=== PATIENT | male | born 1955 ===

== ENCOUNTER 2024-07-17 14:59 | Observation (INO) | payer OTHER ==
[~2024-07-17] VITALS: Ht 182.9 cm; Wt 75.0 kg
[2024-07-17] VITALS (8 sets, daily range): BP systolic 108–157; BP diastolic 60–94
[2024-07-17] MEDS ORDERED: LEVSOD75 PO (16:25)
[2024-07-17] MEDS ORDERED: Dose Adjust by Pharmacy XX STA (16:58)
[2024-07-17] MEDS ORDERED: Heparin Sodium,Porcine/0.5 NS 500 ML IV SCH (17:00)
[2024-07-17] MEDS ORDERED: Bisacodyl 10 MG Supp PR PRN (17:25)
[2024-07-17] MEDS ORDERED: Magnesium Hydroxide Conc 10 ML UDC PO PRN (17:25)
[2024-07-17] MEDS ORDERED: Ondansetron 4 MG TAB PO PRN (17:30)
--- NOTE | 2024-07-17 18:00 | NUR ---
SHIFT SUMMARY PATIENT AOX4 ABLE TO MAKE NEEDS KNOWN. HIS VITALS ARE STABLE AND DENIES SOB. HE DOES SAY HE HAS BURNING CHEST PAIN HE IS ON HEP GTT AND RECIEVED NITRO PASTE FROM OTHER HOSPITAL. HE IS VOIDING IN THE URINAL AND IS A STANDBY ASSIST. 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
[2024-07-17] MEDS ORDERED: Nitroglycerin 0.4 MG SUBL SL PRN (18:25)
[2024-07-17] MEDS ORDERED: Heparin Sodium 1000 Units/ML 10ML MDV ONE (18:49)
[2024-07-17] MEDS ORDERED: NiCARdipine HCL 1,000 MCG/5 ML SYR ONE (18:50)
[2024-07-17] MEDS ORDERED: NS 250 ML IV ONE (18:50)
[2024-07-17] MEDS ORDERED: NS 1,000 ML IV ONE ×2 (18:50→18:51)
[2024-07-17] MEDS ORDERED: FentaNYL Citrate 50 MCG/ML 2 ML Injection ONE ×2 (18:51→19:42)
[2024-07-17] MEDS ORDERED: Nitroglycerin 2 MG/20 ML BTL ONE (18:51)
[2024-07-17] MEDS ORDERED: Midazolam HCl 1MG / ML 2ML Vial ONE ×2 (18:51→19:38)
[2024-07-17] MEDS ORDERED: prasugrel HCL 10 MG TABLET PO ONE (19:30)
[2024-07-17] MEDS ORDERED: DiphenhydrAMINE HCl 50 MG/ML 1ML Vial ONE (19:43)
[2024-07-17] MEDS ORDERED: NS 1,000 ML IV SCH (20:05)
[2024-07-17] MEDS ORDERED: Mag Hydrox/AL Hydrox/Simeth 30 ML UDC PO PRN (20:05)
[2024-07-17] MEDS ORDERED: Doxazosin Mesylate 2 MG Tab PO SCH (21:00)
[2024-07-17] MEDS ORDERED: Famotidine 20 MG Tab PO SCH (21:00)
[2024-07-17] MEDS ORDERED: Docusate Sodium 100 MG Cap PO SCH (21:00)
[2024-07-17] MEDS ORDERED: Atorvastatin 40 MG Tab PO SCH (21:00)
[2024-07-17] MEDS ORDERED: Sennosides 8.6 MG Tab PO SCH (21:00)
[2024-07-17] MEDS ORDERED: Gabapentin 300 MG Cap PO SCH (21:00)
[2024-07-17] MEDS ORDERED: Acetaminophen 325 MG TABLET PO PRN (21:55)
--- NOTE | 2024-07-18 00:45 | NUR ---
SHIFT SUMMARY PT WENT TO [facility] PERSON. RIGHT RADIAL SITE RECOVERED. CHEST PAIN IS DECREASED, LESS RADIATING QUALITY BUT STILL SLIGHTLY PRESENT PER PT. VVS. EKG'S PLACED IN CHART.
[2024-07-18 01:00] VITALS: BP 121/81
[2024-07-18 02:00] VITALS: BP 130/67
[2024-07-18 03:00] VITALS: BP 117/75
[2024-07-18 04:00] VITALS: BP 125/76
[2024-07-18 04:23] LABS: BASOPHILS ABSOLUTE AUTO 0.08 K/mm3 (0.00-0.23); BASOPHILS PERCENT AUTO 1 % (0-2); EOSINOPHILS ABSOLUTE AUTO 0.22 K/mm3 (0.00-0.68); EOSINOPHILS PERCENT AUTO 3 % (0-6); Hemoglobin 13.3 g/dL (13.5-17.5); IMMATURE GRAN ABSOLUTE AUTO 0.02 K/mm3 (0.00-0.10); IMMATURE GRAN PERCENT AUTO 0 % (0-1); LYMPHOCYTES ABSOLUTE AUTO 3.07 K/mm3 (0.84-5.20); LYMPHOCYTES PERCENT AUTO 40 % (21-46); MONOCYTES ABSOLUTE AUTO 0.52 K/mm3 (0.16-1.47); MONOCYTES PERCENT AUTO 7 % (4-13); Mean Corpuscular HGB 30.8 pg (26.0-34.0); Mean Corpuscular Volume 88 fL (80-100); Mean Platelet Volume 12.2 fL (9.1-12.4); NEUTROPHILS ABSOLUTE AUTO 3.71 K/mm3 (1.96-9.15); NEUTROPHILS PERCENT AUTO 49 % (41-73); Platelet Count 128 K/mm3 (150-400); RDW Coefficient Variation 13.1 % (11.7-14.2); RDW Standard Deviation 42.7 fL (35.1-46.3); Red Blood Cell Count 4.32 M/mm3 (4.30-5.90); White Blood Cell Count 7.62 K/mm3 (4.00-11.30)
[2024-07-18 04:36] LABS: Anion Gap 10 mmol/L (3-11); Blood Urea Nitrogen 12 mg/dL (8-24); Bun/Creatinine Ratio 13.1 (12.0-20.0); CHOL/HDL RATIO 2.8; CO2, Blood 23 mmol/L (21-32); Calcium, Blood 8.3 mg/dL (8.5-10.1); Chloride, Blood 109 mmol/L (98-108); Cholesterol 139 mg/dL (50-200); Creatinine, Blood 0.92 mg/dL (0.60-1.20); Glomerular Filtration Rate 90 (60-); Glucose, Blood 94 mg/dL (70-99); HDL Cholesterol 50 mg/dL (>39); LDL/HDL RATIO 1.3; Low Density Lipoprotein Chol 63 mg/dL (0-110); Potassium, Blood 3.9 mmol/L (3.5-5.5); Sodium, Blood 138 mmol/L (136-145); Triglycerides 128 mg/dL (30-160); Very Low Density Lipoprot Chol 25 mg/dL (6-32)
[2024-07-18 07:30] VITALS: BP 135/82
[2024-07-18] MEDS ORDERED: ONDA4ODT MM (07:39)
[2024-07-18] MEDS ORDERED: prasugrel HCL 10 MG TABLET PO SCH (09:00)
[2024-07-18] MEDS ORDERED: Atorvastatin 40 MG Tab PO SCH (09:00)
[2024-07-18] MEDS ORDERED: Aspirin 81 MG TabEC PO SCH (09:00)
[2024-07-18 12:17] VITALS: BP 134/75
[2024-07-18] MEDS ORDERED: ATORVASTATIN CA80 M1 PO (15:41)
[2024-07-18] MEDS ORDERED: ASPI81CH PO (15:42)
[2024-07-18] MEDS ORDERED: DOXA4 PO (15:42)
[2024-07-18] MEDS ORDERED: EFFIENT10 MG PO (15:42)
== END 2024-07-18 17:20 | disposition home or self-care (01) ==
LOC: PCU 14:59
PROVIDERS: Hospitalist; ADMIT Internal Medicine
DX: I21.4 Non-ST elevation (NSTEMI) myocardial infarction (principal); T82.855A Stenosis of coronary artery stent, initial encounter; I25.10 Atherosclerotic heart disease of native coronary artery without angina pectoris; I25.84 Coronary atherosclerosis due to calcified coronary lesion; I10 Essential (primary) hypertension; F17.210 Nicotine dependence, cigarettes, uncomplicated; E78.5 Hyperlipidemia, unspecified; K21.9 Gastro-esophageal reflux disease without esophagitis; I25.2 Old myocardial infarction; N40.0 Benign prostatic hyperplasia without lower urinary tract symptoms; E03.9 Hypothyroidism, unspecified; G62.9 Polyneuropathy, unspecified; Z79.890 Hormone replacement therapy; Y83.1 Surgical operation with implant of artificial internal device as the cause of abnormal reaction of the patient, or of later complication, without mention of misadventure at the time of the procedure
CPT/HCPCS: 36415; 76937; 80048; 80061; 84484; 85025; 85347; 93306; 93458; 99152; 99153; A9270; C1725; C1769; C1874; C1887; C1894; C9600; J1200; J1644; J2250; J3010; J7030; J7050; Q9967